=== PATIENT | female | born 1985 | race Caucasian/White ===

== ENCOUNTER 2018-05-01 11:13 | Emergency (ER) | payer MEDICAID ==
[2018-05-01 11:41] VITALS: BP 126/66
[2018-05-01] MEDS ORDERED: Ondansetron 4 MG/2 ML SDV IVPUSH ONE (12:10)
--- NOTE | 2018-05-01 12:14 | EDM.PDOC ---
ED HPI GENERAL MEDICAL PROBLEM - General Chief Complaint: Abdominal Pain Stated Complaint: PAIN IN MIDDRIV AREA Time Seen by Provider: 05/01/18 11:59 Source of Information: Reports: Patient History Limitations: Reports: No Limitations - History of Present Illness INITIAL COMMENTS - FREE TEXT/NARRATIVE: 32 yo female present to ER with RUQ ABD pain, nausea and vomitting that has been present for 2 days. diarrhea with mild cramping. denies dysuria, fever, chills, SOB or chest pain. Has not had antibiotics in the last 6 months. Occasional etOH intake. - Related Data Allergies Allergy/AdvReac Type Severity Reaction Status Date / Time Penicillins Allergy Unknown Nausea Verified 05/01/18 11:43 adhesive tape Allergy Hives Verified 05/01/18 11:43 Past Medical History Other HEENT History: had abrasion to left eye in the past. 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 12 yrs Social & Family History - Tobacco Use Smoking Status *Q: Current Every Day Smoker Years of Tobacco use: 12 Packs/Tins Daily: 0.2 ED ROS GENERAL - Review of Systems Review Of Systems: See Below Constitutional: Reports: Weight Gain. Denies: Fever, Chills Respiratory: Denies: Shortness of Breath, Wheezing Cardiovascular: Denies: Chest Pain GI/Abdominal: Reports: Abdominal Pain, Anorexia, Diarrhea, Decreased Appetite. Denies: Black Stool, Bloody Stool Skin: Denies: Rash ED EXAM, GI/ABD - Physical Exam Exam: See Below Exam Limited By: No Limitations General Appearance: Alert, WD/WN, No Apparent Distress Head: Atraumatic, Normocephalic Respiratory/Chest: No Respiratory Distress, Lungs Clear, Normal Breath Sounds. No: Crackles, Rhonchi, Wheezing Cardiovascular: Regular Rate, Rhythm, No Murmur, No Rub GI/Abdominal Exam: Normal Bowel Sounds, Soft, Tender. No: Rigid, Rebound (RUQ) Back Exam: Normal Inspection, Full Range of Motion. No: CVA Tenderness (R), CVA Tenderness (L) Neurological: Alert, Oriented Psychiatric: Normal Affect, Normal Mood Skin Exam: Warm, Dry, Intact, Normal Color, No Rash Course - Vital Signs Last Recorded V/S: Last Vital Signs Temp 35.9 C 05/01/18 11:46 Pulse 46 L 05/01/18 11:46 Resp 17 05/01/18 11:46 BP 126/66 05/01/18 11:46 Pulse Ox 92 L 05/01/18 11:46 - Orders/Labs/Meds Orders: Active Orders 24 hr Category Date Time Status Sodium Chloride 0.9% [Normal Saline] 1,000 ml Med 05/01/18 12:15 Active IV ASDIRECTED Medication Orders Sodium Chloride (Normal Saline) 1,000 mls @ 999 mls/hr IV ASDIRECTED PRISCILA Last Admin: 05/01/18 12:45 Dose: 999 mls/hr Labs: Laboratory Tests 05/01/18 05/01/18 Range/Units 12:25 12:25 WBC 6.8 (4.5-11.0) K/uL RBC 4.52 (3.30-5.50) M/uL Hgb 14.0 (12.0-15.0) g/dL Hct 42.5 (36.0-48.0) % MCV 94 (80-98) fL MCH 31 (27-31) pg MCHC 33 (32-36) % Plt Count 257 (150-400) K/uL Neut % (Auto) 58 (36-66) % Lymph % (Auto) 28 (24-44) % [place] % (Auto) 8 H (2-6) % Eos % (Auto) 6 H (2-4) % Baso % (Auto) 0 (0-1) % Sodium 140 (140-148) mmol/L Potassium 4.5 (3.6-5.2) mmol/L Chloride 105 (100-108) mmol/L Carbon Dioxide 30 (21-32) mmol/L Anion Gap 5.4 (5.0-14.0) mmol/L BUN 12 D (7-18) mg/dL Creatinine 1.0 D (0.6-1.0) mg/dL Est Cr Clr Drug Dosing 91.94 mL/min Estimated GFR (MDRD) > 60 (>60) Glucose 92 (74-106) mg/dL Calcium 9.2 (8.5-10.1) mg/dL Total Bilirubin 0.6 (0.2-1.0) mg/dL AST 13 L (15-37) U/L ALT 13 (12-78) U/L Alkaline Phosphatase 62 (46-116) U/L Total Protein 7.2 (6.4-8.2) g/dL Albumin 3.9 (3.4-5.0) g/dL Globulin 3.3 (2.3-3.5) g/dL Albumin/Globulin Ratio 1.2 (1.2-2.2) Meds: Medications Generic Name Dose Route Start Last Admin Trade Name Lucas PRN Reason Stop Dose Admin Sodium Chloride 1,000 mls @ 999 mls/hr 05/01/18 12:15 05/01/18 12:45 Normal Saline IV 999 mls/hr ASDIRECTED PRISCILA Administration Discontinued Medications Generic Name Dose Route Start Last Admin Trade Name Lucas PRN Reason Stop Dose Admin Ondansetron HCl 4 mg 05/01/18 12:10 05/01/18 12:44 Zofran IVPUSH 05/01/18 12:11 4 mg ONETIME ONE Administration - Re-Assessments/Exams Free Text/Narrative Re-Assessment/Exam: 05/01/18 13:12 received IV fluids. no vomiting or diarrhea while in ER. Pt has oral zofran at home. Departure - Departure Time of Disposition: 13:16 Disposition: Home, Self-Care 01 Condition: Good Clinical Impression: Gastroenteritis - Discharge Information Instructions: Viral Gastroenteritis, Adult, [id number] Referrals: PCP,None [Primary Care Provider] - Forms: ED Department Discharge Additional Instructions: maintain hydration with sips of fluid advance diet as tolerated follow-up with Primary care or return to ER with worsening or continuation of symptoms - My Orders Last 24 Hours: My Active Orders 05/01/18 12:15 Sodium Chloride 0.9% [Normal Saline] 1,000 ml IV ASDIRECTED - Assessment/Plan Last 24 Hours: My Active Orders 05/01/18 12:15 Sodium Chloride 0.9% [Normal Saline] 1,000 ml IV ASDIRECTED
[2018-05-01] MEDS ORDERED: Sodium Chloride 0.9% 1,000 ML IV SCH (12:15)
== END 2018-05-01 13:44 | disposition home or self-care (01) ==
LOC: JP.ED 11:13
DX: K52.9 Noninfective gastroenteritis and colitis, unspecified (principal); F17.210 Nicotine dependence, cigarettes, uncomplicated; Z88.0 Allergy status to penicillin; Z91.048 Other nonmedicinal substance allergy status
CPT/HCPCS: 36415; 80053; 85025; 96361; 96374; 99284; J2405; J7030

== ENCOUNTER 2018-05-30 20:36 | Emergency (ER) | payer MEDICAID ==
[2018-05-30 21:02] VITALS: BP 157/95
[2018-05-30] MEDS ORDERED: Pantoprazole 40 MG Vial IVPUSH ONE (21:38)
[2018-05-30] MEDS ORDERED: HYDROmorphone 1 MG/ML Syringe IVPUSH ONE (21:39)
[2018-05-30] MEDS ORDERED: Sodium Chloride 0.9% 1,000 ML IV SCH (21:45)
--- NOTE | 2018-05-30 22:35 | EDM.PDOC ---
ED HPI GENERAL MEDICAL PROBLEM - General Chief Complaint: Abdominal Pain Stated Complaint: ABD PAIN Time Seen by Provider: 05/30/18 21:17 Source of Information: Reports: Patient History Limitations: Reports: No Limitations - History of Present Illness INITIAL COMMENTS - FREE TEXT/NARRATIVE: Right upper abdominal pain: This is a 32-year-old female presents emergency room with right upper abdominal pain, reports pain started at 11 PM yesterday evening, today spent resting, tried to eat at 6 PM and felt very nauseated and heartburn. Reports nausea, bloody stool this morning 1, eating a regular diet but becomes very painful after and nauseated after eating. Reports past history of Crohn's disease, colitis Onset: Sudden, Gradual ( 24 hours) Duration: Hour(s): (24), Getting Worse, Waxing/Waning Location: Reports: Abdomen Quality: Reports: Same as Previous Episode Severity: Moderate Improves with: Reports: Rest Worsens with: Reports: Eating Associated Symptoms: Reports: Fever/Chills, Loss of Appetite, Nausea/Vomiting Abdominal Pain Score (Numeric/FACES): 8 - Related Data Allergies Allergy/AdvReac Type Severity Reaction Status Date / Time Penicillins Allergy Unknown Nausea Verified 05/30/18 21:05 adhesive tape Allergy Hives Verified 05/30/18 21:05 Home Meds: Home Meds NK [No Known Home Meds] 05/30/18 [History] Past Medical History Other HEENT History: had abrasion to left eye in the past. 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: Neurological History: Reports: Migraines Psychiatric History: Reports: Depression - Infectious Disease History Infectious Disease History: Reports: Chicken Pox - Past Surgical History Female Surgical History: Reports: Section Social & Family History - Family History Family Medical History: Noncontributory - Tobacco Use Smoking Status *Q: Current Every Day Smoker Years of Tobacco use: 15 Packs/Tins Daily: 0.5 - Caffeine Use Caffeine Use: Reports: Soda - Recreational Drug Use Recreational Drug Use: Yes Recreational Drug Type: Reports: Marijuana/Hashish ED ROS GENERAL - Review of Systems Review Of Systems: See Below Constitutional: Reports: Other (Abdominal pain) HEENT: Reports: No Symptoms Respiratory: Reports: No Symptoms Cardiovascular: Reports: No Symptoms Endocrine: Reports: No Symptoms GI/Abdominal: Reports: Abdominal Pain : Reports: No Symptoms Musculoskeletal: Reports: No Symptoms Skin: Reports: No Symptoms Neurological: Reports: No Symptoms Psychiatric: Reports: No Symptoms Hematologic/Lymphatic: Reports: No Symptoms Immunologic: Reports: No Symptoms ED EXAM, GI/ABD - Physical Exam Exam: See Below Exam Limited By: No Limitations General Appearance: Alert, WD/WN, Mild Distress Eyes: Bilateral: Normal Appearance Ears: Normal External Exam, Normal Canal, Hearing Grossly Normal, Normal TMs Nose: Normal Inspection, Normal Mucosa, No Blood Throat/Mouth: Normal Inspection, Normal Lips, Normal Teeth, Normal Gums, Normal Oropharynx, Normal Voice, No Airway Compromise Head: Atraumatic, Normocephalic Neck: Normal Inspection Respiratory/Chest: No Respiratory Distress, Lungs Clear, Normal Breath Sounds, No Accessory Muscle Use, Chest Non-Tender Cardiovascular: Normal Peripheral Pulses, Regular Rate, Rhythm, No Edema, No Gallop, No JVD, No Murmur, No Rub GI/Abdominal Exam: Soft, Tender (Height upper abdomen) (Female) Exam: Deferred Rectal (Female) Exam: Deferred Back Exam: Normal Inspection Extremities: Normal Inspection, Normal Range of Motion, Non-Tender, Normal Capillary Refill, No Pedal Edema Neurological: Alert Psychiatric: Normal Affect, Normal Mood Skin Exam: Warm, Dry, Intact, Normal Color, No Rash Lymphatic: No Adenopathy Course - Vital Signs Last Recorded V/S: Last Vital Signs Temp 37.1 C 05/30/18 21:06 Pulse 89 05/30/18 21:06 Resp 20 05/30/18 21:06 BP 157/95 H 05/30/18 21:06 Pulse Ox 97 05/30/18 21:06 - Orders/Labs/Meds Orders: Active Orders 24 hr Category Date Time Status UA W/MICROSCOPIC [URIN] Urgent Lab 05/30/18 21:37 Ordered Labs: Laboratory Tests 05/30/18 05/30/18 05/30/18 Range/Units 21:49 21:49 21:49 WBC 9.9 (4.5-11.0) K/uL RBC 4.48 (3.30-5.50) M/uL Hgb 14.0 (12.0-15.0) g/dL Hct 41.3 (36.0-48.0) % MCV 92 (80-98) fL MCH 31 (27-31) pg MCHC 34 (32-36) % Plt Count 260 (150-400) K/uL Neut % (Auto) 81 H (36-66) % Lymph % (Auto) 11 L (24-44) % [place] % (Auto) 8 H (2-6) % Eos % (Auto) 1 L (2-4) % Baso % (Auto) 0 (0-1) % Sodium 139 L (140-148) mmol/L Potassium 3.7 (3.6-5.2) mmol/L Chloride 104 (100-108) mmol/L Carbon Dioxide 27 (21-32) mmol/L Anion Gap 11.7 (5.0-14.0) mmol/L BUN 11 (7-18) mg/dL Creatinine 1.0 (0.6-1.0) mg/dL Est Cr Clr Drug Dosing 91.94 mL/min Estimated GFR (MDRD) > 60 (>60) Glucose 104 (74-106) mg/dL Calcium 8.9 (8.5-10.1) mg/dL Total Bilirubin 0.9 (0.2-1.0) mg/dL AST 16 (15-37) U/L ALT 13 (12-78) U/L Alkaline Phosphatase 57 (46-116) U/L Total Protein 7.1 (6.4-8.2) g/dL Albumin 3.6 (3.4-5.0) g/dL Globulin 3.5 (2.3-3.5) g/dL Albumin/Globulin Ratio 1.0 L (1.2-2.2) Amylase 25 (25-115) U/L Lipase 50 L (73-393) U/L Meds: Medications Discontinued Medications Generic Name Dose Route Start Last Admin Trade Name Freq PRN Reason Stop Dose Admin Hydromorphone HCl 1 mg 05/30/18 21:39 05/30/18 22:05 Dilaudid IVPUSH 05/30/18 21:40 1 mg ONETIME ONE Administration Sodium Chloride 1,000 mls @ 999 mls/hr 05/30/18 21:45 05/30/18 22:04 Normal Saline IV 999 mls/hr ASDIRECTED PRISCILA Administration Pantoprazole Sodium 40 mg 05/30/18 21:38 05/30/18 22:05 Protonix Iv IVPUSH 05/30/18 21:39 40 mg ONETIME ONE Administration - Re-Assessments/Exams Free Text/Narrative Re-Assessment/Exam: 05/30/18 23:28 Labs are stable no elevation in white count, chemistries normal. Given IV fluids and pain meds which relieved the symptoms. Will plan to return to ER in the morning for an ultrasound of the gallbladder. She was given given directions to have nothing by mouth after midnight and report to the ER for ultrasound. She agrees with plan of care. Left stable and ambulatory. Family to drive her home Departure - Departure Time of Disposition: 23:05 Disposition: Home, Self-Care 01 Condition: Good Clinical Impression: Abdominal pain Qualifiers: Abdominal location: right upper quadrant Qualified Code(s): R10.11 - Right upper quadrant pain - Discharge Information Instructions: Abdominal Pain, Adult Referrals: PCP,None [Primary Care Provider] - Forms: ED Department Discharge Care Plan Goals: Abdominal Pain; right upper abdominal -medicate for pain. Percocet 5-325mg one every 4 to 6 hr as needed for pain -Nothing to eat or drink after midnight, then return to ER in the morning for gallbladder ultrasound -if has gallstones will need to be seen in Surgery Clinic - - Problem List & Annotations (1) Abdominal pain SNOMED Code(s): 71834008 Code(s): R10.9 - UNSPECIFIED ABDOMINAL PAIN Status: Acute Qualifiers: Abdominal location: right upper quadrant Qualified Code(s): R10.11 - Right upper quadrant pain - Problem List Review Problem List Initiated/Reviewed/Updated: Yes - My Orders Last 24 Hours: My Active Orders 05/30/18 21:37 UA W/MICROSCOPIC [URIN] Urgent - Assessment/Plan Last 24 Hours: My Active Orders 05/30/18 21:37 UA W/MICROSCOPIC [URIN] Urgent Plan: Abdominal Pain; right upper abdominal -medicate for pain. Percocet 5-325mg one every 4 to 6 hr as needed for pain -Nothing to eat or drink after midnight, then return to ER in the morning for gallbladder ultrasound -if has gallstones will need to be seen in Surgery Clinic -return to ER if has any worsen of pain, uncontrolled nausea and vomiting, fever , chills or any concerns Work slip given Ms. Mijares agrees with plan of care.
== END 2018-05-30 23:09 | disposition home or self-care (01) ==
LOC: JP.ED 20:36
DX: R10.11 Right upper quadrant pain (principal); F17.210 Nicotine dependence, cigarettes, uncomplicated; Z88.0 Allergy status to penicillin; Z91.09 Other allergy status, other than to drugs and biological substances; Z87.19 Personal history of other diseases of the digestive system
CPT/HCPCS: 36415; 80053; 82150; 83690; 85025; 96361; 96374; 96375; 99284; C9113; J1170; J7030

== ENCOUNTER 2018-07-14 13:38 | Emergency (ER) | payer MEDICAID ==
[2018-07-14 14:40] VITALS: BP 147/86
[2018-07-14] MEDS ORDERED: Ondansetron 4 MG Tab.DIS PO ONE (14:41)
[2018-07-14] MEDS ORDERED: Ketorolac 60 MG/2 ML SDV IM ONE (14:41)
--- NOTE | 2018-07-14 14:49 | EDM.PDOC ---
ED HPI GENERAL MEDICAL PROBLEM - General Chief Complaint: Headache Stated Complaint: MIGRAINE Time Seen by Provider: 07/14/18 14:44 Source of Information: Reports: Patient, Old Records, RN History Limitations: Reports: No Limitations - History of Present Illness INITIAL COMMENTS - FREE TEXT/NARRATIVE: 32 yo female with a PHx of migraine presents with another since 5:30 am today. No fever, recent head injury or neurological changes. Does have nausea and photophobia. 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: Neurological History: Reports: Migraines Psychiatric History: Reports: Depression - Infectious Disease History Infectious Disease History: Reports: Chicken Pox - Past Surgical History GI Surgical History: Reports: Colonoscopy, EGD Female Surgical History: Reports: Section Social & Family History - Family History Family Medical History: Noncontributory - Tobacco Use Smoking Status *Q: Light Tobacco Smoker Years of Tobacco use: 15 Packs/Tins Daily: 0.3 - Caffeine Use Caffeine Use: Reports: Soda - Recreational Drug Use Recreational Drug Use: Yes Recreational Drug Type: Reports: Marijuana/Hashish, Methamphetamine ED ROS GENERAL - Review of Systems Review Of Systems: See Below Constitutional: Reports: No Symptoms HEENT: Reports: Other (photophobia) Respiratory: Reports: No Symptoms Cardiovascular: Reports: No Symptoms GI/Abdominal: Reports: Nausea : Reports: No Symptoms Musculoskeletal: Reports: No Symptoms Skin: Reports: No Symptoms Neurological: Reports: Headache - Physical Exam Exam: See Below Exam Limited By: No Limitations General Appearance: Alert, WD/WN, No Apparent Distress Eye Exam: Bilateral Eye: EOMI, Normal Inspection, PERRL, Other (photophobia) Ears: Normal External Exam, Normal Canal, Hearing Grossly Normal, Normal TMs Nose: Normal Inspection, Normal Mucosa, No Blood Throat/Mouth: Normal Inspection, Normal Lips, Normal Oropharynx, Normal Voice, No Airway Compromise Head Exam: Atraumatic, Normocephalic Neck: Normal Inspection, Supple Respiratory/Chest: No Respiratory Distress, Lungs Clear, Normal Breath Sounds, No Accessory Muscle Use Cardiovascular: Regular Rate, Rhythm, No Edema GI/Abdominal: Normal Bowel Sounds, Soft, Non-Tender, No Distention Neuro Exam (Abbreviated): Alert, Oriented, CN II-XII Intact, Normal Cognition, No Motor/Sensory Deficits Back Exam: Normal Inspection. No: CVA Tenderness (R), CVA Tenderness (L) Extremities: Normal Inspection, Normal Range of Motion, Non-Tender, No Pedal Edema Psychiatric: Normal Affect, Normal Mood Skin Exam: Warm, Dry, Intact, Normal Color, No Rash Course - Vital Signs Text/Narrative:: Toradol 60 mg IM/ Zofran ODT 4 mg SL given per patient request. Last Recorded V/S: Last Vital Signs Temp 36.6 C 07/14/18 14:26 Pulse 66 07/14/18 14:26 Resp 15 07/14/18 14:26 BP 147/86 H 07/14/18 14:26 Pulse Ox 98 07/14/18 14:26 - Orders/Labs/Meds Meds: Medications Discontinued Medications Generic Name Dose Route Start Last Admin Trade Name Lucas PRN Reason Stop Dose Admin Ketorolac Tromethamine 60 mg 07/14/18 14:41 Toradol IM 07/14/18 14:42 ONETIME ONE Ondansetron HCl 4 mg 07/14/18 14:41 Zofran Odt PO 07/14/18 14:42 ONETIME ONE Departure - Departure Time of Disposition: 15:15 Disposition: Home, Self-Care 01 Condition: Fair Clinical Impression: Migraine - Discharge Information *PRESCRIPTION DRUG MONITORING PROGRAM REVIEWED*: Not Applicable *COPY OF PRESCRIPTION DRUG MONITORING REPORT IN PATIENT ANNAMARIA: Not Applicable Instructions: Recurrent Migraine Headache, [id number] Referrals: PCP,None [Primary Care Provider] - Forms: ED Department Discharge Additional Instructions: Home to rest. F/U with your provider to discuss outpatient things you can do for your headaches.
== END 2018-07-14 15:27 | disposition home or self-care (01) ==
LOC: JP.ED 13:38
DX: G43.909 Migraine, unspecified, not intractable, without status migrainosus (principal); F17.210 Nicotine dependence, cigarettes, uncomplicated; Z88.0 Allergy status to penicillin; Z91.09 Other allergy status, other than to drugs and biological substances
CPT/HCPCS: 96372; 99283; A9270; J1885

== ENCOUNTER 2022-05-04 12:17 | Emergency (ER) | payer SELFPAY | END 2022-05-04 13:50 | disposition left against medical advice (07) | LOC: JP.ED 12:17 | DX: Z53.21 Procedure and treatment not carried out due to patient leaving prior to being seen by health care provider (principal) ==

== ENCOUNTER 2022-05-04 21:54 | Emergency (ER) | payer SELFPAY ==
[2022-05-04] MEDS ORDERED: Sodium Chloride 0.9% 10 ML Syringe FLUSH PRN (22:55)
[2022-05-04] MEDS ORDERED: Dextrose 5%-Lactated Ringers 1,000 ML IV SCH (23:00)
[2022-05-04] MEDS ORDERED: Ketorolac 30 MG/ML SDV IVPUSH ONE (23:01)
[2022-05-04 23:35] LABS: ESTIMATED GFR 86 mL/min (>60)
[2022-05-05] MEDS ORDERED: Ciprofloxacin 500 MG Tab PO ONE (00:08)
[2022-05-05] MEDS ORDERED: predniSONE 20 MG Tab PO ONE (00:09)
[2022-05-05] MEDS ORDERED: metroNIDAZOLE 250 MG Tab PO ONE (00:09)
[2022-05-05 00:21] VITALS: BP 114/63; PULSE 65
== END 2022-05-05 00:57 | disposition home or self-care (01) ==
LOC: JP.ED 21:54
DX: K50.10 Crohn's disease of large intestine without complications (principal); K52.9 Noninfective gastroenteritis and colitis, unspecified; Z88.0 Allergy status to penicillin; Z91.048 Other nonmedicinal substance allergy status
CPT/HCPCS: 36415; 80048; 81001; 83735; 85025; 86140; 96361; 96374; 99284; A9270; J1885; J3490; J7121; J7512

== ENCOUNTER 2022-06-08 05:14 | Emergency (ER) | payer OTHER ==
[2022-06-08 05:31] VITALS: BP 125/78; PULSE 78
== END 2022-06-08 06:33 | disposition home or self-care (01) ==
LOC: JP.ED 05:14
DX: M77.8 Other enthesopathies, not elsewhere classified (principal); F17.210 Nicotine dependence, cigarettes, uncomplicated; Z88.0 Allergy status to penicillin; Z91.048 Other nonmedicinal substance allergy status; Z86.16 Personal history of COVID-19
CPT/HCPCS: 71046; 71046-26; 99283

== ENCOUNTER 2022-09-22 07:24 | Emergency (ER) | payer OTHER ==
[2022-09-22 07:39] VITALS: BP 139/85; PULSE 80
[2022-09-22] MEDS ORDERED: Sodium Chloride 0.9% 10 ML Syringe FLUSH PRN (08:39)
[2022-09-22] MEDS ORDERED: Sodium Chloride 0.9% 1,000 ML IV STA (08:39)
[2022-09-22] MEDS ORDERED: Iopamidol 612 MG/ML 500 ML Multipack Bottle IV ONE (08:52)
[2022-09-22] MEDS ORDERED: Sodium Chloride 0.9% 50 ML IV SCH (09:00)
[2022-09-22 09:11] LABS: ESTIMATED GFR 86 mL/min (>60)
[2022-09-22] MEDS ORDERED: Ketorolac 30 MG/ML SDV IVPUSH ONE (10:11)
== END 2022-09-22 11:35 | disposition home or self-care (01) ==
LOC: JP.ED 07:24
DX: N83.201 Unspecified ovarian cyst, right side (principal); Z72.0 Tobacco use; Z88.0 Allergy status to penicillin; Z91.048 Other nonmedicinal substance allergy status
CPT/HCPCS: 36415; 74177; 80053; 81001; 81025; 83605; 83690; 85025; 96361; 96374; 99284; J1885; J3490; J7030; Q9967

== ENCOUNTER 2022-10-06 08:18 | Emergency (ER) | payer MEDICAID, OTHER ==
[2022-10-06 08:34] VITALS: BP 123/81; PULSE 76
== END 2022-10-06 09:45 | disposition home or self-care (01) ==
LOC: JP.ED 08:18
DX: B34.9 Viral infection, unspecified (principal); Z72.0 Tobacco use; Z88.0 Allergy status to penicillin; Z91.048 Other nonmedicinal substance allergy status
CPT/HCPCS: 99283

== ENCOUNTER 2023-08-08 12:40 | Emergency (ER) | payer BC, MEDICAID, OTHER ==
[2023-08-08 13:08] VITALS: BP 118/72; PULSE 69
[2023-08-08] MEDS ORDERED: Ketorolac 30 MG/ML SDV IM ONE (13:21)
== END 2023-08-08 13:59 | disposition home or self-care (01) ==
LOC: JP.ED 12:40
DX: M72.2 Plantar fascial fibromatosis (principal); Z86.16 Personal history of COVID-19
CPT/HCPCS: 96372; 99283; J1885

== ENCOUNTER 2023-09-28 17:50 | Emergency (ER) | payer BC, MEDICAID | END 2023-09-28 19:00 | disposition left against medical advice (07) | LOC: JP.ED 17:50 | DX: Z53.21 Procedure and treatment not carried out due to patient leaving prior to being seen by health care provider (principal) ==

== ENCOUNTER 2024-10-02 19:38 | Emergency (ER) | payer BC ==
[2024-10-02 19:59] VITALS: BP 144/103; PULSE 87
== END 2024-10-02 20:30 | disposition home or self-care (01) ==
LOC: JP.ED 19:38
DX: T19.2XXA Foreign body in vulva and vagina, initial encounter (principal); Z86.16 Personal history of COVID-19; Z88.0 Allergy status to penicillin; Z91.048 Other nonmedicinal substance allergy status
CPT/HCPCS: 99283

== ENCOUNTER 2025-09-06 13:31 | Emergency (ER) | payer BC ==
[2025-09-06 14:18] VITALS: BP 128/86; PULSE 80
[2025-09-09 12:28] LABS: APTIMA MEDIA TYPE MultiTest Swab; C. TRACHOMATIS BY TMA Negative (Negative); N. GONORRHOEAE BY TMA Negative (Negative)
== END 2025-09-06 15:17 | disposition home or self-care (01) ==
LOC: JP.ED 13:31
DX: B37.31 Acute candidiasis of vulva and vagina (principal); F17.200 Nicotine dependence, unspecified, uncomplicated; Z88.0 Allergy status to penicillin; Z91.09 Other allergy status, other than to drugs and biological substances
CPT/HCPCS: 87210; 87491; 87591; 99283